=== PATIENT | female | born 1955 | race Hispanic/Latino ===

== ENCOUNTER → 2019-05-24 | Outpatient (CLI) | payer OTHER ==
--- NOTE | 2019-05-24 16:06 | Diagnostic Imaging Report ---
EXAMINATION: SHOULDER LEFT COMPLETE INDICATION: Left shoulder pain COMPARISON: None FINDINGS: Internal and external rotation views of the left shoulder demonstrate no acute fracture or dislocation. Alignment is anatomic. No substantial degenerative change. The visualized portions of the left lung are clear. The soft tissues appear unremarkable. IMPRESSION: No acute osseous injury. Signed by: Stan Marshall MD on 05/24/2019 4:03 PM
== END ==
LOC: RAD 15:04
PROVIDERS: ATTEND Internal Medicine
DX: R31.9 Hematuria, unspecified (principal); M25.512 Pain in left shoulder

== ENCOUNTER → 2023-09-09 | Outpatient (REF) | payer MEDICARE | LOC: RAD 14:14 | PROVIDERS: ATTEND Internal Medicine | DX: M17.0 Bilateral primary osteoarthritis of knee (principal) ==

== ENCOUNTER → 2024-02-07 | Outpatient (REF) | payer MEDICARE ==
[~2024-02-07] MED LIST: IOPAMIDOL 370 MG/ML 100 ML INFUS..BTL INJ ONE
[2024-02-07 14:30] LABS: CREATININE, SERUM 0.84 mg/dL (0.57-1.11)
== END ==
LOC: CT 13:43
PROVIDERS: ATTEND Obstetrics & Gynecology
DX: R10.30 Lower abdominal pain, unspecified (principal); R35.0 Frequency of micturition; R20.8 Other disturbances of skin sensation
CPT/HCPCS: 36415; 72193; 82565; 84520; Q9967

== ENCOUNTER → 2025-02-02 | Outpatient (REF) | payer MEDICARE | LOC: RAD 11:29 | PROVIDERS: ATTEND Internal Medicine | DX: M47.812 Spondylosis without myelopathy or radiculopathy, cervical region (principal) | CPT/HCPCS: 72050 ==

== ENCOUNTER → 2025-06-26 | Outpatient (REF) | payer MEDICARE | LOC: MRI 09:56 | PROVIDERS: ATTEND Internal Medicine | DX: M54.2 Cervicalgia (principal) | CPT/HCPCS: 72141 ==